=== PATIENT | female | born 1955 | race Caucasian/White ===

== ENCOUNTER 2022-02-10 18:14 | Emergency (ER) | payer OTHER, MEDICARE ==
--- OUTSIDE RECORDS SUMMARY | 2022-02-10 18:18 | XMS REPORT | Continuity of Care Document ---
:1955 Author Organization [facility] t Address [address] [place] [address] Dr. Dominguez [address] [place] [id number] Care Team Providers Name Role Phone PCP, DOES NOT HAVE A Primary Care Physician Unavailable JUSTIN Attending Clinician Unavailable FLORENCIA Attending Clinician Unavailable CARMELITA Attending Clinician Unavailable Les CAGE, Zaid Attending Clinician Ebrahim COMPLIANCE TECHNICIAN Attending Clinician Benny GONZALEZ JR Attending Clinician Unavailable Tali Galvan MD, F Attending Clinician Payers Payer Name Policy Type Policy Number Effective Date Expiration Date [facility] [id number] 2022 MEDICARE SUPPLEMENT 00:00:00 MEDICARE PART A \T\ [id number] 2021 B 00:00:00 Problems Condition Condition Condition Status Onset Resolution Last Treating Co mments Source Name Details Category Date Date Treatment Clinician Date Rheumatoid Rheumatoid Disease Active 2020-10 N PI:183 arthritis arthritis 0 [id number] 00:00: 00 Allergies, Adverse Reactions, Alerts Allergy Allergy Status Severity Reaction(s) Onset Inactive Treating Comm ents Source Name Type Date Date Clinician CODEINE DRUG Active High ITCHING 2020-10 NPI:183 INGREDI 0- [id number] 00:00: 00 Codeine Propensi Active Itching 2020-10 NPI:18 3 ty to 0 [id number] adverse 00:00: reaction 00 s Social History Social Habit Start Date Stop Date Quantity Comments Source Exposure to 2022-01-31 2022-02-10 Not sure NPI:[id number] 1 SARS-CoV-2 00:00:00 10:45:00 (event) Alcohol intake 2022-01-31 2022-01-31 Ex-drinker NPI:[id number] 00:00:00 00:00:00 (finding) Tobacco use and 2021-07-15 2021-07-15 Never used NPI:[id number] exposure 00:00:00 00:00:00 [birth year] NPI:[id number] 00:00:00 00:00:00 Smoking Status Start Date Stop Date Source Never smoker Medications Ordered Filled Start Stop Current Ordering Indication Dosage Frequency Signature Comments Components Source Medication Medication Date Date Medication? Clinician (SIG) Name Name mupirocin 2 Yes [id number] Apply to NPI:183 % ointment 1-25 surgical [id number] 00:00: site with 00 every dressing change until the tube runs out. mupirocin 2 Yes [id number] Apply to NPI:183 % ointment 1-25 surgical [id number] 81 00:00: site with 00 every dressing change until the tube runs out. hydrOXYchlo 2020-10 Yes 200mg Take 200 N PI:183 roQUINE 200 0-09 mg by [id number] mg tablet 17:36: mouth 46 daily. hydrOXYchlo 2020-10 Yes 200mg Take 200 N PI:183 roQUINE 200 0-09 mg by [id number] mg tablet 17:36: mouth 46 daily. escitalopra 2020-10 Yes 20mg Take 20 mg NPI:183 m oxalate 0-08 by mouth [id number] 1 20 mg 00:00: daily. tablet 00 escitalopra 2020-10 Yes 20mg Take 20 mg NPI:183 m oxalate 0-08 by mouth [id number] 1 20 mg 00:00: daily. tablet 00 eszopiclone Yes 3mg Take 3 mg N PI:183 3 mg tablet 9-20 by mouth 1318 781 00:00: at 00 bedtime. eszopiclone Yes 3mg Take 3 mg N PI:183 3 mg tablet 9-20 by mouth 1318 781 00:00: at 00 bedtime. meloxicam Yes 15mg Take 15 mg [employer] I:183 15 mg 9-19 by mouth [id number] tablet 00:00: daily. 00 meloxicam 0 Yes 15mg Take 15 mg [employer] I:183 15 mg 9-19 by mouth [id number] tablet 00:00: daily. 00 Vital Signs Vital Name Observation Time Observation Value Comments Source Systolic blood pressure 2022-02-10 15:46:00 136 mm[Hg] Diastolic blood 2022-02-10 15:46:00 81 mm[Hg] NPI:1 [id number] pressure Heart rate 2022-02-10 15:46:00 87 /min NPI:1831 [id number] Body temperature 2022-02-10 15:46:00 37.39 Linnea Respiratory rate 2022-02-10 15:46:00 16 /min Body height 2022-02-10 15:46:00 165.1 cm NPI:1831 [id number] Body weight 2022-02-10 15:46:00 99.32 kg NPI:1831 [id number] BMI 2022-02-10 15:46:00 36.44 kg/m2 NPI:1831 [id number] Oxygen saturation in 2022-02-10 15:46:00 98 /min Arterial blood by Pulse oximetry Procedures Procedure Date / Time Performed Performing Clinician Sourc e POCT MOLECULAR FLU 2022-02-10 15:54:00 Jennifer Mae NPI:[id number] Encounters Start End Encounter Admission Attending Care Care Encounter Source Date/Time Date/Time Type Type Clinicians Facility Department ID 2022-03-15 2022-03-15 Outpatient R JUSTIN [facility] [id number] NPI:183 16:15:00 16:15:00 ADITYA [id number] 2022-02-20 2022-02-20 Outpatient FLORENCIA [facility] [id number] NPI:183 09:00:00 09:00:00 KODI [id number] 1 2022-02-10 2022-02-10 Outpatient Soraida MAE [facility] [id number] NPI:183 10:40:00 11:41:56 JENNIFER [id number] 1 2022-02-10 2022-02-10 Urgent Rozina Saldana [facility] [id number] NPI:183 10:40:00 11:41:56 Care Jennifer Mae [facility] [id number] [place] [id number] VITALY?BLEA [id number] [place] [address] [facility] 2022-02-10 2022-02-10 Outpatient R [facility] [id number] NPI:183 10:40:00 10:40:00 [id number] 2022-01-31 2022-01-31 [id number] NPI:183 14:00:00 16:21:20 JOHNIE [id number] 1 2022-01-31 2022-01-31 Office AMIRA Gonzalez [id number] NPI:183 14:00:00 14:15:00 Visit [facility] [id number] CLINICS [id number] Results Test Description Test Time Test Comments Results Result Comments Source POCT MOLECULAR FLU 2022-02-10 16:05:31 Test Item Value Reference Range Interpretation Comme nts POCT Molecular FluA (test code = 43908-3) Negative Negative POCT Molecular FluB (test code = 06749-5) Negative Negative Lab Interpretation (test code = 06849-3) Normal
--- NOTE | 2022-02-10 21:27 | RAD REPORT ---
EXAM DESCRIPTION: RAD - Chest Pa And Lat (2 Views) - 02/10/2022 9:09 pm CLINICAL HISTORY: FEVER COMPARISON: No comparisonsCHEST PA AND LAT 2 VIEW dated 09/14/2013; CHEST SINGLE VIEW dated 1 FINDINGS: Lines: None. Lungs: No evidence of edema or pneumonia. Pleural: No significant pleural effusions or pneumothorax. Cardiac: The heart size is within normal limits. Bones: No acute fractures. Other: IMPRESSION: No acute cardiopulmonary disease.
[2022-02-10 22:01] LABS: Absolute Lymphocytes (CBC) 1.1 K/uL (0.7-4.9); Lymphocytes % 13.3 % (15.3-44.8); MPV 7.4 fL (7.6-11.3); RBC Red Blood Cell Count 4.07 M/uL (3.86-4.86)
[2022-02-10 22:05] LABS: Urine Blood Trace-lysed (Negative); Urine Glucose Negative (Negative); Urine Protein Negative (Negative); Urine Specific Gravity <=1.005 (1.005-1.030); Urine pH 5.5 (5.0-7.0)
[2022-02-10] MEDS ORDERED: ACETAMINOPHEN 500 MG TAB ONE (22:18)
[2022-02-10 22:19] LABS: Albumin 3.6 g/dL (3.4-5.0); Bilirubin Direct 0.1 mg/dL (0-0.2); Bilirubin Total 0.4 mg/dL (0.2-1.0); Potassium 3.6 mmol/L (3.5-5.1); Protein, Total 7.2 g/dL (6.4-8.2)
[2022-02-10 22:50] LABS: SARS-COV-2 RT PCR NEGATIVE (NEGATIVE)
[2022-02-10 22:51] LABS: Urine Bacteria 20-50 /HPF (<20); Urine RBC <5 /HPF (NONE SEEN)
[2022-02-10] MEDS ORDERED: NA CHLORIDE 0.9% 1,000 ML ONE (23:17)
[2022-02-10] MEDS ORDERED: NA CHLORIDE 0.9% 50 ML ONE (23:17)
[2022-02-10] MEDS ORDERED: CEFTRIAXONE 1000 MG/VIAL ONE (23:17)
--- NOTE | 2022-02-10 23:35 | ER ---
Nurse's Notes [facility] Name: Emerald Mcdonald Age: 66 yrs Sex: Female : 1955 Arrival Date: 02/10/2022 Time: 18:17 Bed 13 Private MD: Diagnosis: UTI/ Urinary tract infection, site not specified Presentation: 02/10 18:29 Chief complaint: Patient states: Fever, chills and body aches that began 5 days ago. Pt ss reports this is the third time in 6 months that this has occurred. Pt reports that she was recently tested for Covid and Flu, but they came back negative. Coronavirus screen: Client denies travel out of the [place] in the last 14 days. Ebola Screen: Patient denies exposure to infectious person. Patient denies travel to an Ebola-affected area in the 21 days before illness onset. Initial Sepsis Screen: Does the patient meet any 2 criteria? No. Patient's initial sepsis screen is negative. Does the patient have a suspected source of infection? No. Patient's initial sepsis screen is negative. Risk Assessment: Do you want to hurt yourself or someone else? Patient reports no desire to harm self or others. Onset of symptoms was February 05, 2022. 18:29 Method Of Arrival: Ambulatory ss 18:29 Acuity: ARIC 3 ss Historical: - Allergies: 18:31 Codeine; ss - PMHx: 18:31 Rheumatoid arthritis; ss - Immunization history:: Client reports receiving the 2nd dose of the Covid vaccine. - Social history:: Smoking status: Patient denies any tobacco usage or history of. Screenin:04 Abuse screen: Denies threats or abuse. Denies injuries from another. Nutritional ld1 screening: No deficits noted. Tuberculosis screening: No symptoms or risk factors identified. Fall Risk None identified. Assessment: 22:10 General: Appears in no apparent distress. Behavior is cooperative. Pain: Complains of ld1 pain in generalized Quality of pain is described as aching. Neuro: No deficits noted. Elmore Agitation-Sedation Scale (RASS): 0 - Alert and Calm Level of Consciousness is awake, alert, obeys commands, Oriented to person, place, time, situation. Cardiovascular: No deficits noted. Capillary refill < 3 seconds Patient's skin is warm and dry. Respiratory: No deficits noted. Airway is patent Trachea midline Respiratory effort is even, unlabored. GI: No deficits noted. 23:24 Reassessment: No changes from previously documented assessment. Patient and/or family sm5 updated on plan of care and expected duration. Pain level reassessed. Vital Signs: 18:29 BP 126 / 76; Pulse 84; Resp 16; Temp 97.3(TE); Pulse Ox 94% on R/A; Weight 98.88 kg; ss Height 5 ft. 5 in. (165.10 cm); Pain 3/10; 23:45 BP 122 / 84; Pulse 79; Resp 18; Pulse Ox 100% on R/A; sm5 18:29 Body Mass Index 36.28 (98.88 kg, 165.10 cm) ED Course: 18:17 Patient arrived in ED. ds1 18:31 Triage completed. ss 18:31 Arm band placed on right wrist. ss 20:29 Yolanda Velez, LINNEA is Primary Nurse. sm5 20:37 Zhang Crenshaw MD is Attending Physician. mh7 21:10 Chest Pa And Lat (2 Views) XRAY In Process Unspecified. EDMS 21:57 Rapid Strep Sent. sm5 21:57 COVID-19/FLU A+B/RSV (Document "Date of Onset" if Symptomatic) Sent. sm5 21:57 LFT's Sent. sm5 21:57 Basic Metabolic Panel Sent. sm5 21:57 CBC with Diff Sent. sm5 22:07 Urine Microscopic Only Sent. sm5 23:04 Patient has correct armband on for positive identification. Bed in low position. Call ld1 light in reach. Side rails up X2. 23:09 Urine Culture Sent. ld1 23:10 Inserted saline lock: 22 gauge in right antecubital area, using aseptic technique. vc1 05 00:24 No provider procedures requiring assistance completed. IV discontinued, intact, sm5 bleeding controlled, No redness/swelling at site. Pressure dressing applied. Administered Medications: 02/10 22:21 Drug: Acetaminophen 1000 mg Route: PO; sm5 22:35 Follow up: Response: Pain is decreased 5 23:21 Drug: NS 0.9% 1000 ml Route: IV; Rate: 1000 ml; Site: right antecubital; ld1 23:57 Follow up: IV Status: Completed infusion; IV Intake: 1000ml sm5 23:21 Drug: Rocephin (cefTRIAXone) 1 grams Route: IV; Rate: per protocol; Site: right ld1 antecubital; 23:34 Follow up: IV Status: Completed infusion; IV Intake: 50ml sm5 Intake: 23:34 IV: 50ml; Total: 50ml. sm5 23:57 IV: 1000ml; Total: 1050ml. 5 Outcome: 23:34 Discharge ordered by MD. rivera 02/11 00:24 Discharged to home ambulatory, with family. sm5 Condition: stable Discharge instructions given to patient, family, Instructed on discharge instructions, follow up and referral plans. medication usage, Demonstrated understanding of instructions, follow-up care, medications, Prescriptions given X 1. 00:24 Patient left the ED. 5 Signatures: Dispatcher [employer] EDPR Darlene Ibarra ds1 Zoe Rubio RN RN ss Holmes, Maurice, MD MD mh7 Dibbern, Lauren, RN RN ld1 Yolanda Velez RN RN sm5 Filomena Goodwin RN RN vc1
--- NOTE | 2022-02-10 23:35 | EDPHYS ---
Physician Documentation [facility] Name: Emerald Mcdonald Age: 66 yrs Sex: Female : 1955 Arrival Date: 02/10/2022 Time: 18:17 Bed 13 Private MD: ED Physician Zhang Crenshaw HPI: 02/10 20:57 This 66 yrs old Female presents to ER via Ambulatory with complaints of Fever, Body mh7 Aches. 20:57 The patient reports fever, that was measured at 102 degrees Fahrenheit. Onset: The mh7 symptoms/episode began/occurred 5 day(s) ago. Modifying factors: there are no obvious modifying factors. Associated signs and symptoms: Pertinent positives: arthralgias, chills, myalgias, Pertinent negatives: abdominal pain, altered mental status, backache, chest pain, cough, diarrhea, earache, headache, hemoptysis, nausea, night sweats, runny nose, sinus congestion, sinus drainage, skin rash, shortness of breath, sore throat, swelling, vomiting. Severity of symptoms: At their worst the symptoms were moderate 2 day(s) ago, in the emergency department the symptoms have improved markedly. The patient has experienced similar episodes in the past, a few times. States fever up to 102 for the past 5 days along with chills and body aches. Similar episodes at least two times prior in the past 6 months. Denies any other symptoms or complaints.. Historical: - Allergies: 18:31 Codeine; ss - PMHx: 18:31 Rheumatoid arthritis; ss - Immunization history:: Client reports receiving the 2nd dose of the Covid vaccine. - Social history:: Smoking status: Patient denies any tobacco usage or history of. ROS: 20:57 Eyes: Negative for injury, pain, redness, and discharge, ENT: Negative for injury, mh7 pain, and discharge, Neck: Negative for injury, pain, and swelling, Cardiovascular: Negative for chest pain, palpitations, and edema, Respiratory: Negative for shortness of breath, cough, wheezing, and pleuritic chest pain, Abdomen/GI: Negative for abdominal pain, nausea, vomiting, diarrhea, and constipation, Back: Negative for injury and pain, : Negative for injury, bleeding, discharge, and swelling, MS/Extremity: Negative for injury and deformity, Skin: Negative for injury, rash, and discoloration, Neuro: Negative for headache, weakness, numbness, tingling, and seizure, Psych: Negative for depression, anxiety, suicide ideation, homicidal ideation, and hallucinations, Allergy/Immunology: Negative for hives, rash, and allergies, Endocrine: Negative for neck swelling, polydipsia, polyuria, polyphagia, and marked weight changes, Hematologic/Lymphatic: Negative for swollen nodes, abnormal bleeding, and unusual bruising. Exam: 20:57 Constitutional: This is a well developed, well nourished patient who is awake, alert, mh7 and in no acute distress. Head/Face: Normocephalic, atraumatic. Eyes: Pupils equal round and reactive to light, extra-ocular motions intact. Lids and lashes normal. Conjunctiva and sclera are non-icteric and not injected. Cornea within normal limits. Periorbital areas with no swelling, redness, or edema. ENT: Nares patent. No nasal discharge, no septal abnormalities noted. Tympanic membranes are normal and external auditory canals are clear. Oropharynx with no redness, swelling, or masses, exudates, or evidence of obstruction, uvula midline. Mucous membranes moist. Neck: Trachea midline, no thyromegaly or masses palpated, and no cervical lymphadenopathy. Supple, full range of motion without nuchal rigidity, or vertebral point tenderness. No Meningismus. Chest/axilla: Normal chest wall appearance and motion. Nontender with no deformity. No lesions are appreciated. Cardiovascular: Regular rate and rhythm with a normal S1 and S2. No gallops, murmurs, or rubs. Normal PMI, no JVD. No pulse deficits. Respiratory: Lungs have equal breath sounds bilaterally, clear to auscultation and percussion. No rales, rhonchi or wheezes noted. No increased work of breathing, no retractions or nasal flaring. Abdomen/GI: Soft, non-tender, with normal bowel sounds. No distension or tympany. No guarding or rebound. No evidence of tenderness throughout. Back: No spinal tenderness. No costovertebral tenderness. Full range of motion. Skin: Warm, dry with normal turgor. Normal color with no rashes, no lesions, and no evidence of cellulitis. MS/ Extremity: Pulses equal, no cyanosis. Neurovascular intact. Full, normal range of motion. Neuro: Awake and alert, GCS 15, oriented to person, place, time, and situation. Cranial nerves II-XII grossly intact. Motor strength 5/5 in all extremities. Sensory grossly intact. Cerebellar exam normal. Normal gait. Psych: Awake, alert, with orientation to person, place and time. Behavior, mood, and affect are within normal limits. Vital Signs: 18:29 BP 126 / 76; Pulse 84; Resp 16; Temp 97.3(TE); Pulse Ox 94% on R/A; Weight 98.88 kg; ss Height 5 ft. 5 in. (165.10 cm); Pain 3/10; 23:45 BP 122 / 84; Pulse 79; Resp 18; Pulse Ox 100% on R/A; sm5 18:29 Body Mass Index 36.28 (98.88 kg, 165.10 cm) ss MDM: 23:33 Differential diagnosis: viral Infection, bacterial infection, URI, bronchitis, mh7 pneumonia UTI. Data reviewed: vital signs, nurses notes, lab test result(s), CBC, electrolytes, urinalysis, radiologic studies, plain films. Data interpreted: Pulse oximetry: on room air is 96 %. Interpretation: normal. Counseling: I had a detailed discussion with the patient and/or guardian regarding: the historical points, exam findings, and any diagnostic results supporting the discharge/admit diagnosis, lab results, radiology results, the need for outpatient follow up, to return to the emergency department if symptoms worsen or persist or if there are any questions or concerns that arise at home. Response to treatment: the patient's symptoms have resolved after treatment, the patient's blood pressure is in an acceptable range, mental status has returned to baseline, the patient no longer shows bradycardia, the patient is not short of breath, the patient is not tachycardic, the patient's pain is gone, the patient's temperature has normalized, the patient is now symptom free, patient is well hydrated. 23:34 Patient medically screened. [facility] 02/10 20:57 Order name: CBC with Diff; Complete Time: 22:56 [facility] 02/10 20:57 Order name: Basic Metabolic Panel; Complete Time: 22:56 [facility] 02/10 20:57 Order name: LFT's; Complete Time: 22:56 [facility] 02/10 20:57 Order name: Urine Microscopic Only; Complete Time: 22:56 [facility] 02/10 20:57 Order name: COVID-19/FLU A+B/RSV (Document "Date of Onset" if Symptomatic); Complete [facility] Time: 22:56 02/10 20:57 Order name: Rapid Strep; Complete Time: 22:56 [facility] 02/10 20:57 Order name: Chest Pa And Lat (2 Views) XRAY; Complete Time: 21:41 [facility] 02/10 20:57 Order name: Blood Culture Adult (2) [facility] 02/10 22:05 Order name: Urine Dipstick-Ancillary; Complete Time: 22:56 [facility] 02/10 22:45 Order name: Throat Culture [facility] 02/10 22:53 Order name: Urine Culture [facility] 02/10 20:57 Order name: Urine Dipstick-Ancillary (obtain specimen); Complete Time: 22:07 [facility] 02/10 20:57 Order name: Saline Lock; Complete Time: 23:43 [facility] Administered Medications: 22:21 Drug: Acetaminophen 1000 mg Route: PO; 5 22:35 Follow up: Response: Pain is decreased [facility] 23:21 Drug: NS 0.9% 1000 ml Route: IV; Rate: 1000 ml; Site: right antecubital; ld1 23:57 Follow up: IV Status: Completed infusion; IV Intake: 1000ml sm5 23:21 Drug: Rocephin (cefTRIAXone) 1 grams Route: IV; Rate: per protocol; Site: right ld1 antecubital; 23:34 Follow up: IV Status: Completed infusion; IV Intake: 50ml sm5 Disposition Summary: 02/10/22 23:34 Discharge Ordered Location: Home [facility] Problem: new [facility] Symptoms: have improved [facility] Condition: Stable [facility] Diagnosis - UTI/ Urinary tract infection, site not specified [facility] Followup: [facility] - With: Private Physician - When: 1 - 2 days - Reason: Worsening of condition, Recheck today's complaints, Continuance of care, Re-evaluation by your physician Discharge Instructions: - Discharge Summary Sheet [facility] - Urinary Tract Infection, Adult [facility] Forms: - Medication Reconciliation Form [facility] - Thank You Letter [facility] - Antibiotic Education [facility] - Prescription Opioid Use [facility] Prescriptions: - Cephalexin 500 mg Oral Capsule - take 1 capsule by ORAL route every 12 hours for 7 days; 14 capsule; Refills: 0, mh7 Product Selection Permitted Signatures: Dispatcher [employer] Zoe Christianson, RN RN ss Zhang Crenshaw MD MD 7 Coco Burgos RN RN ld1 Yolanda Velez RN RN sm5
[2022-02-11 01:39] VITALS: TEMP 97.3
[2022-02-11 01:45] VITALS: BP 122/84; O2SAT 100
== END 2022-02-11 00:24 | disposition home or self-care (01) ==
LOC: ER 18:14
DX: N39.0 Urinary tract infection, site not specified (principal); Z20.822 Contact with and (suspected) exposure to COVID-19; Z88.5 Allergy status to narcotic agent
CPT/HCPCS: 96361; 87040 ×2; 87070; 87088; 85025; 87086; 80048; 36415; 80076; 87081; 87077; 87186; 0241U; 71046; 96374; 99284; J7030; 81003; 81015

== ENCOUNTER 2024-06-13 08:42 | Emergency (ER) | payer OTHER, MEDICARE ==
[2024-06-13] MEDS ORDERED: ONDANSETRON 4 MG/2 ML VIAL ONE (08:57)
[2024-06-13] MEDS ORDERED: ASPIRIN 81 MG CHEWABLE TABLET ONE ×3 (08:57→09:57)
[2024-06-13] MEDS ORDERED: FAMOTIDINE 20 MG/2 ML VIAL IV ONE (08:57)
[2024-06-13] MEDS ORDERED: NA CHLORIDE 0.9% 500 ML ONE (08:58)
[2024-06-13 09:25] LABS: Absolute Eosinophils 0.1 K/uL (0-0.5); Absolute Lymphocytes (CBC) 0.9 K/uL (0.7-4.9); Absolute Monocytes 0.5 K/uL (0.1-1.3); Absolute Neutrophil 4.7 K/uL (1.8-8.0); Basophils % 0.2 % (0-1.3); Eosinophils % 1.8 % (0-4.4); Hematocrit 33.3 % (36.0-45.0); Hemoglobin 11.6 g/dL (12.0-15.0); Lymphocytes % 14.9 % (15.3-44.8); MCH 31.1 pg (27.0-35.0); MCHC 34.9 g/dL (32.0-36.0); MCV 89.1 fL (80-100); MPV 7.8 fL (7.6-11.3); Monocytes % 7.4 % (3.3-12.3); Neutrophils % 75.7 % (41.7-73.7); Nucleated Red Blood Cells % 0.1 % (0-0); PT Prothrombin Time 11.8 SECONDS (9.4-12.5); Platelets 251 thou/uL (152-406); Protime INR 1.06; RBC Red Blood Cell Count 3.74 M/uL (3.86-4.86); Red Cell Distribution Width 13.7 % (12.1-15.2)
[2024-06-13 09:40] LABS: ALT/SGPT 23 U/L (13-56); Albumin 3.7 g/dL (3.4-5.0); Albumin/Globulin Ratio 1.2 (1.1-1.8); Alkaline Phosphatase 89 U/L (45-117); Anion Gap 11.8 mEq/L (5.0-15.0); BUN Blood Urea Nitrogen 18 mg/dL (7-18); Bicarbonate 23 mEq/L (21-32); Bilirubin Total 0.3 mg/dL (0.2-1.0); Globulin 3.2 g/dL (2.3-3.5); Glomerular Filtration Rate 64 ml/min (=/>90); Glucose Level 88 mg/dL (74-106); Lipase 32 U/L (13-75); NT PRO-BNP 50 pg/mL (<125); Protein, Total 6.9 g/dL (6.4-8.2); Sodium Level 135 mEq/L (136-145)
[2024-06-13 09:41] LABS: AST/SGOT 23 U/L (15-37); Bilirubin Direct < 0.2 mg/dL (0-0.2); Bilirubin Indirect, Calculated 0.1 mg/dL (0.2-0.8); Magnesium 2.3 mg/dL (1.6-2.4); Potassium 3.8 mEq/L (3.5-5.1)
[2024-06-13 09:43] LABS: Troponin High Sensitivity 329.4 pg/mL (<58.9)
[2024-06-13] MEDS ORDERED: ENOXAPARIN 80 MG/0.8 ML SQ ONE (09:54)
[2024-06-13] MEDS ORDERED: ATORVASTATIN 40 MG TAB ONE (09:55)
[2024-06-13] MEDS ORDERED: METOPROLOL TAR 25 MG TAB ONE (09:55)
[2024-06-13] MEDS ORDERED: CLOPIDOGREL 75 MG TABLET ONE (09:56)
--- NOTE | 2024-06-13 10:03 | EDPHYS ---
Physician Documentation [facility] Name: Emerald Mcdonald Age: 69 yrs Sex: Female : 1955 Arrival Date: 06/13/2024 Time: 08:42 Bed 5 Private MD: ED Physician Jamar Ty HPI: 06/13 09:54 This 69 yrs old Female presents to ER via Ambulatory with complaints of Chest loida Tightness, Nausea/Vomiting. 09:54 The patient or guardian reports chest pain that is located primarily in the substernal loida area. Onset: just prior to arrival, this morning. The pain radiates to the left shoulder, left neck. Associated signs and symptoms: Pertinent positives: nausea. The chest pain is described as causing indigestion, a pressure. Duration: The patient or guardian reports a single episode, that is still ongoing, but improving. Modifying factors: The symptoms are alleviated by nothing. the symptoms are aggravated by nothing. Severity of pain: At its worst the pain was moderate in the emergency department the pain has improved moderately. The patient has not experienced similar symptoms in the past. Historical: - Allergies: 08:50 Codeine; ph - PMHx: 08:50 Rheumatoid Arthritis; ph 08:55 Hypertensive disorder; Osteoarthritis; ll1 - PSHx: 08:55 B knee replacements; ll1 - Immunization history:: Adult Immunizations unknown. - Infectious Disease History:: Denies. - Social history:: Smoking status: unknown. - Family history:: not pertinent. ROS: 09:54 Constitutional: Negative for fever, chills, and weight loss, Eyes: Negative for injury, loida pain, redness, and discharge, ENT: Negative for injury, pain, and discharge, Neck: Negative for injury, pain, and swelling, Respiratory: Negative for shortness of breath, cough, wheezing, and pleuritic chest pain, Abdomen/GI: Negative for abdominal pain, nausea, vomiting, diarrhea, and constipation, Back: Negative for injury and pain, : Negative for injury, bleeding, discharge, and swelling, MS/Extremity: Negative for injury and deformity, Skin: Negative for injury, rash, and discoloration, Neuro: Negative for headache, weakness, numbness, tingling, and seizure, Psych: Negative for depression, anxiety, suicide ideation, homicidal ideation, and hallucinations, Allergy/Immunology: Negative for hives, rash, and allergies, Endocrine: Negative for neck swelling, polydipsia, polyuria, polyphagia, and marked weight changes, Hematologic/Lymphatic: Negative for swollen nodes, abnormal bleeding, and unusual bruising, 09:54 Cardiovascular: Positive for chest pain, of the chest, Exam: 09:54 Constitutional: This is a well developed, well nourished patient who is awake, alert, loida and in no acute distress. Head/Face: Normocephalic, atraumatic. Eyes: Pupils equal round and reactive to light, extra-ocular motions intact. Lids and lashes normal. Conjunctiva and sclera are non-icteric and not injected. Cornea within normal limits. Periorbital areas with no swelling, redness, or edema. ENT: Nares patent. No nasal discharge, no septal abnormalities noted. Tympanic membranes are normal and external auditory canals are clear. Oropharynx with no redness, swelling, or masses, exudates, or evidence of obstruction, uvula midline. Mucous membranes moist. Neck: Trachea midline, no thyromegaly or masses palpated, and no cervical lymphadenopathy. Supple, full range of motion without nuchal rigidity, or vertebral point tenderness. No Meningismus. Chest/axilla: Normal chest wall appearance and motion. Nontender with no deformity. No lesions are appreciated. Cardiovascular: Regular rate and rhythm with a normal S1 and S2. No gallops, murmurs, or rubs. Normal PMI, no JVD. No pulse deficits. Respiratory: Lungs have equal breath sounds bilaterally, clear to auscultation and percussion. No rales, rhonchi or wheezes noted. No increased work of breathing, no retractions or nasal flaring. Abdomen/GI: Soft, non-tender, with normal bowel sounds. No distension or tympany. No guarding or rebound. No evidence of tenderness throughout. Back: No spinal tenderness. No costovertebral tenderness. Full range of motion. Female : Normal external genitalia. Skin: Warm, dry with normal turgor. Normal color with no rashes, no lesions, and no evidence of cellulitis. MS/ Extremity: Pulses equal, no cyanosis. Neurovascular intact. Full, normal range of motion. Neuro: Awake and alert, GCS 15, oriented to person, place, time, and situation. Cranial nerves II-XII grossly intact. Motor strength 5/5 in all extremities. Sensory grossly intact. Cerebellar exam normal. Normal gait. Psych: Awake, alert, with orientation to person, place and time. Behavior, mood, and affect are within normal limits. 09:54 ECG was reviewed by the Attending Physician. Vital Signs: 08:56 BP 120 / 82; Pulse 65; Resp 16; Temp 97.1; Pulse Ox 100% on R/A; Weight 72.57 kg; ll1 Height 5 ft. 4 in. ; Pain 3/10; 09:38 BP 122 / 59; Pulse 59; Resp 18; Pulse Ox 98% on R/A; ph 11:00 BP 118 / 57; Pulse 56; Resp 18; Temp 97; Pulse Ox 100% on R/A; ph 08:56 Body Mass Index 27.46 (72.57 kg, 162.56 cm) ll1 08:56 Pain Scale: Adult ll1 MDM: 08:44 Patient medically screened. loida 09:57 Differential diagnosis: abnormal EKG, acute myocardial infarction, acute pericarditis, loida anxiety, chest wall pain, costochondritis, esophagitis, gastroesophageal reflux disease (GERD), hiatal hernia, pancreatitis, peptic ulcer disease, pericarditis, pleurisy, pneumonia, pulmonary embolus, stable angina, thoracic aortic disection, unstable angina. HEART Score: History: Moderately Suspicious (1), ECG: Non specific repolarization disturbance / LBTB / PM (1), Age: > or = 65 years (2), Risk Factors: 1 or 2 risk factors (1), [Hypertension] [+ Family HX] Troponin: > or = 3 x Normal Limit (2), Total Score = 7. The patient was given aspirin in the Emergency Department. DARCY Risk Score: 1 - patient's age is greater or equal to 65 years, 1 - Three or more CAD risk factors, [Family Hx], [HTN], 1 - ASA use in past 7 days, 1 - Recent [<24hrs] Severe Angina, 1 - Elevated Cardiac Markers, TOTAL SCORE = 4. Data reviewed: vital signs, nurses notes, lab test result(s), EKG, radiologic studies, plain films. Consideration of Admission/Observation Escalation of care including admission/observation considered. I considered the following discharge prescriptions or medication management in the emergency department Medications were administered in the Emergency Department. See MAR. Independent interpretation of the following test(s) in the Emergency Department EKG: See my EKG interpretation above. Test considered but Not performed: CT: no ct chest. Historians other than the Patient: pt well informed. Care significantly affected by the following chronic conditions: Hypertension, rhematoid, oa. Counseling: I had a detailed discussion with the patient and/or guardian regarding the historical points, exam findings, and any diagnostic results supporting the discharge/admit diagnosis, lab results, radiology results, the need to transfer to another facility, for higher level of care, [facility] does not immediately have the required specialist. 06/13 08:51 Order name: Basic Metabolic Panel; Complete Time: 09:48 [facility] 06/13 08:51 Order name: CBC with Diff; Complete Time: 09:48 [facility] 06/13 08:51 Order name: LFT's; Complete Time: 09:48 [facility] 06/13 08:51 Order name: Magnesium; Complete Time: 09:48 [facility] 06/13 08:51 Order name: NT PRO-BNP; Complete Time: 09:48 [facility] 06/13 08:51 Order name: PT-INR; Complete Time: 09:48 [facility] 06/13 08:51 Order name: Troponin HS; Complete Time: 09:48 [facility] 06/13 09:20 Order name: Lipase; Complete Time: 09:48 EDMS 06/13 08:51 Order name: XRAY Chest (1 view) [facility] 06/13 08:51 Order name: EKG; Complete Time: 08:51 [facility] 06/13 08:51 Order name: Cardiac monitoring; Complete Time: 09:01 [facility] 06/13 08:51 Order name: EKG - Nurse/Tech; Complete Time: 08:53 [facility] 06/13 08:51 Order name: IV Saline Lock; Complete Time: 09:39 [facility] 06/13 08:51 Order name: Labs collected and sent; Complete Time: 09:39 [facility] 06/13 08:51 Order name: O2 Per Protocol; Complete Time: 08:52 [facility] 06/13 08:51 Order name: O2 Sat Monitoring; Complete Time: 08:52 [facility] EC:54 Rate is 65 beats/min. Rhythm is regular. QRS [place] is Normal. [place] interval is normal. QRS loida interval is normal. QT interval is normal. No Q waves. T waves are Normal. No ST changes noted. Clinical impression: NSR w/ Non-specific ST/T Changes and No evidence of ischemia. Interpreted by me. Reviewed by me. Administered Medications: 09:15 Drug: Ondansetron IVP 4 mg IVP once; over 2 minutes Route: IVP; Site: right antecubital;ph 10:00 Follow up: Response: No adverse reaction ph 09:15 Drug: Famotidine IVP 20 mg IVP once; dilute with 10 mL 0.9% NaCl; give over 2 minutes ph Route: IVP; Site: right antecubital; 10:00 Follow up: Response: No adverse reaction ph 09:15 Drug: NS 0.9% IV 500 ml IV at bolus once Route: IV; Rate: bolus; Site: right ph antecubital; 10:00 Follow up: Response: No adverse reaction; IV Status: Completed infusion; IV Intake: ph 500ml 09:15 Drug: Aspirin PO Chewable Tablet 81 mg PO once Route: PO; ph 10:30 Follow up: Response: No adverse reaction ph 10:06 Drug: Metoprolol PO 25 mg PO once Route: PO; ph 10:30 Follow up: Response: No adverse reaction ph 10:06 Drug: Atorvastatin PO 40 mg PO once Route: PO; ph 10:30 Follow up: Response: No adverse reaction ph 10:06 Drug: Clopidogrel PO 300 mg PO once Route: PO; ph 10:30 Follow up: Response: No adverse reaction ph 10:06 Drug: Aspirin PO Chewable Tablet 243 mg PO once Route: PO; ph 10:30 Follow up: Response: No adverse reaction ph 10:07 Drug: Enoxaparin Sub-Q 1 mg/kg Sub-Q once Route: Sub-Q; Site: right lower abdomen; ph 10:30 Follow up: Response: No adverse reaction ph 17:43 Not Given (Patient Refused): fentanyl (pf)50 mcg IVP once ph Disposition: 10:03 Critical Care:. loida Disposition Summary: 06/13/24 10:03 Transfer Ordered Notes: Transfer Location: [facility] loida Reason: Higher level of care lioda Condition: Serious loida Problem: new loida Symptoms: have improved loida Accepting Physician: Dr. Cagle(06/13/24 12:14) eb Diagnosis - Unstable angina loida - Non ST elevation [place] loida Forms: - Medication Reconciliation Form loida - SBAR form loida Critical care time excluding procedures: 10:03 Critical care time: Bedside Care: 30 minutes, Consultation: 15 minutes, Family loida Intervention: 5 minutes. Total time: 50 minutes Signatures: Dispatcher [employer] EDJamar Milan MD MD cha Hall, Patricia, RN RN Patricia Betts Lynsay, RN RN ll1 Corrections: (The following items were deleted from the chart) 09:20 08:59 LIPASE+C.LAB.BRZ ordered. KINGSLEYVA EDMS 10:57 10:03 to [facility] loida hernandez 12:14 10:57 Dr. Gurjit hernandez
--- NOTE | 2024-06-13 10:03 | ER ---
Nurse's Notes [facility] Name: Emerald Mcdonald Age: 69 yrs Sex: Female : 1955 Arrival Date: 06/13/2024 Time: 08:42 Bed 5 Private MD: Diagnosis: Unstable angina;Non ST elevation [place] Presentation: 06/13 08:56 Chief complaint: Patient states: Chest pressure with N/V started this AM while starting ll1 to get [place] go [place] the beach. Coronavirus screen: Client denies travel out of the [place] in the last 14 days. nausea, vomiting. Client presents with at least one sign or symptom that may indicate coronavirus-19. Standard/surgical mask placed on the client. Ebola Screen: Patient denies travel to an Ebola-affected area in the 21 days before illness onset. Initial Sepsis Screen: Does the patient meet any 2 criteria? No. Patient's initial sepsis screen is negative. Does the patient have a suspected source of infection? No. Patient's initial sepsis screen is negative. Risk Assessment: Do you want to hurt yourself or someone else? Patient reports no desire to harm self or others. Onset of symptoms was June 13, 2024. 08:56 Method Of Arrival: Ambulatory ll1 08:56 Acuity: ARIC 3 ll1 Triage Assessment: 08:58 General: Appears uncomfortable, Behavior is calm, cooperative, appropriate for age. ll1 Pain: Complains of pain in L chest pressure Pain currently is 3 out of 10 on a pain scale. Quality of pain is described as pressure. Cardiovascular: Reports chest pain, nausea. GI: Reports nausea, vomiting. Historical: - Allergies: 08:50 Codeine; ph - PMHx: 08:50 Rheumatoid Arthritis; ph 08:55 Hypertensive disorder; Osteoarthritis; ll1 - PSHx: 08:55 B knee replacements; ll1 - Immunization history:: Adult Immunizations unknown. - Infectious Disease History:: Denies. - Social history:: Smoking status: unknown. - Family history:: not pertinent. Screenin:53 [facility] ED Fall Risk Assessment (Adult) History of falling in the last 3 months, ph including since admission No falls in past 3 months (0 pts) Confusion or Disorientation No (0 pts) Intoxicated or Sedated No (0 pts) Impaired Gait No (0 pts) Mobility Assist Device Used No (0 pt) Altered Elimination No (0 pt) Score/Fall Risk Level 0 - 2 = Low Risk Oriented to surroundings, Maintained a safe environment, Hourly rounding (assess needs \T\ fall precautionary measures) done. Abuse screen: Denies threats or abuse. Denies injuries from another. Nutritional screening: No deficits noted. Tuberculosis screening: No symptoms or risk factors identified. Assessment: 09:24 General: Appears in no apparent distress. comfortable, well groomed, Behavior is calm, ph cooperative, appropriate for age. Pain: Complains of pain in chest Pain does not radiate. Pain began this morning. Neuro: Level of Consciousness is awake, alert, obeys commands, Oriented to person, place, time, situation. Cardiovascular: Reports chest pain, diaphoresis, nausea, Capillary refill < 3 seconds in bilateral fingers Patient's skin is warm and dry. Rhythm is regular. Respiratory: Airway is patent Respiratory effort is even, unlabored, Respiratory pattern is regular, symmetrical. 10:10 Reassessment: Patient appears in no apparent distress at this time. Patient and/or ph family updated on plan of care and expected duration. Pain level reassessed. Patient is alert, oriented x 3, equal unlabored respirations, skin warm/dry/pink. Patient denies pain at this time. Vital Signs: 08:56 BP 120 / 82; Pulse 65; Resp 16; Temp 97.1; Pulse Ox 100% on R/A; Weight 72.57 kg; ll1 Height 5 ft. 4 in. ; Pain 3/10; 09:38 BP 122 / 59; Pulse 59; Resp 18; Pulse Ox 98% on R/A; ph 11:00 BP 118 / 57; Pulse 56; Resp 18; Temp 97; Pulse Ox 100% on R/A; ph 08:56 Body Mass Index 27.46 (72.57 kg, 162.56 cm) ll1 08:56 Pain Scale: Adult ll1 Vitals: 11:00 Cardiac Rhythm Assessment Sinus destiney. ph ED Course: 08:44 Patient arrived in ED. mr 08:44 Jamar Ty MD is Attending Physician. [facility] 08:50 Vicenta Magaña RN is Primary Nurse. ph 08:50 Patient has correct armband on for positive identification. Bed in low position. Call light in reach. Side rails up X 1. Client placed on continuous cardiac and pulse oximetry monitoring. NIBP monitoring applied. case monitor on. 08:51 Arm band placed on Patient placed in an exam room. ph 08:58 Triage completed. ll1 08:58 EKG done, by electronic equipment maint tech. reviewed by Jamar Ty MD. oh1 09:07 XRAY Chest (1 view) In Process Unspecified. EDMS 09:23 Initial lab(s) drawn, by me, sent to lab. Inserted saline lock: 20 gauge in right ph antecubital area, using aseptic technique. Blood collected. Flushed with 10 mL NS. Patient maintains SpO2 saturation greater than 95% on room air. 09:38 No provider procedures requiring assistance completed. ph 09:43 Notified ED physician of a critical lab result(s). troponin 329. ll1 09:59 initiated a transfer with Patricia Moore from the [facility]. eb 10:[address] Chan Rojo the body shop supervisor television mechanic for [facility] with Dr. Ty for patient transfer consultation. 10:25 administrative approval given by Patricia Moore/ patient has been accepted to [facility] 6 south bed 6210/ Dr. Bairon Rojo has accepted the patient in transfer/ report to be called to [phone]. 10:55 accepting physician changed to Dr. Cagle. eb 12:14 Patient transferred, IV remains in place. ph Administered Medications: 09:15 Drug: Ondansetron IVP 4 mg IVP once; over 2 minutes Route: IVP; Site: right antecubital;ph 10:00 Follow up: Response: No adverse reaction ph 09:15 Drug: Famotidine IVP 20 mg IVP once; dilute with 10 mL 0.9% NaCl; give over 2 minutes ph Route: IVP; Site: right antecubital; 10:00 Follow up: Response: No adverse reaction ph 09:15 Drug: NS 0.9% IV 500 ml IV at bolus once Route: IV; Rate: bolus; Site: right antecubital; 10:00 Follow up: Response: No adverse reaction; IV Status: Completed infusion; IV Intake: ph 500ml 09:15 Drug: Aspirin PO Chewable Tablet 81 mg PO once Route: PO; ph 10:30 Follow up: Response: No adverse reaction ph 10:06 Drug: Metoprolol PO 25 mg PO once Route: PO; ph 10:30 Follow up: Response: No adverse reaction ph 10:06 Drug: Atorvastatin PO 40 mg PO once Route: PO; ph 10:30 Follow up: Response: No adverse reaction ph 10:06 Drug: Clopidogrel PO 300 mg PO once Route: PO; ph 10:30 Follow up: Response: No adverse reaction ph 10:06 Drug: Aspirin PO Chewable Tablet 243 mg PO once Route: PO; ph 10:30 Follow up: Response: No adverse reaction ph 10:07 Drug: Enoxaparin Sub-Q 1 mg/kg Sub-Q once Route: Sub-Q; Site: right lower abdomen; ph 10:30 Follow up: Response: No adverse reaction ph 17:43 Not Given (Patient Refused): fentanyl (pf)50 mcg IVP once ph Medication: 08:51 VIS not applicable for this client. ph Intake: 10:00 IV: 500ml; Total: 500ml. ph Outcome: 10:03 ER care complete, transfer ordered by MD. mariscal 12:14 Patient left the ED. 12:14 Transferred by [facility] [place]. to [facility] form ph completed. X-rays sent w/ patient. 12:14 Condition: stable 12:14 Instructed on the need for transfer, Signatures: Dispatcher [employer] Jamar Cristobal MD MD cha Rivera, [place], Reg Vicenta Gutierrez RN RN Patricia Tierney Lynsay, RN RN [facility]
--- NOTE | 2024-06-13 10:56 | RAD REPORT ---
EXAM DESCRIPTION: RADChest Single View06/13/2024 9:06 am CLINICAL HISTORY: COUGH COMPARISON: Chest Pa And Lat (2 Views) dated 02/10/2022; CHEST PA AND LAT 2 VIEW dated 09/14/2013; CHES T SINGLE VIEW dated 08/19/2011 TECHNIQUE: Portable AP view of the chest. FINDINGS: The lungs are clear. No pneumothorax or effusion. The cardiomediastinal contours are unre markable. IMPRESSION: No acute cardiopulmonary process.
[2024-06-13 12:18] VITALS: TEMP 97.1
[2024-06-13 12:20] VITALS: BP 122/59; O2SAT 98
--- NOTE | 2024-06-15 17:05 | EKG ---
Test Date: 2024-06-13 Test Time: 08:55:53 Rotary Saw Operator: ADELINA MEASUREMENT RESULTS: Intervals: Rate: 65 IA: 170 QRSD: 140 QT: 432 QTc: 449 [place] Ari: P: 42 IA: 170 QRS: 9 T: 32 INTERPRETIVE STATEMENTS: Normal sinus rhythm Right bundle branch block Abnormal ECG Compared to ECG 08/19/2011 07:37:13 No significant changes Electronically Signed On 06-15-24 17:00:24 CDT by [place] Palomino
== END 2024-06-13 12:14 | disposition short-term general hospital (02) ==
LOC: ER 08:42
DX: I21.4 Non-ST elevation (NSTEMI) myocardial infarction (principal); I10 Essential (primary) hypertension; R11.0 Nausea
CPT/HCPCS: 96361; 93005; 85025; 80048; 36415; 83735; 85610; 80076; 84484; 83690; 83880; 71045; 96375; 96372; 96374; 99285; J2405; J7040